=== PATIENT | female | born 1945 | race Two or more races ===

== ENCOUNTER 2019-06-13 14:02 | Emergency (ER) | payer MEDICARE, OTHER ==
[~2019-06-13] VITALS: Ht 160 cm; Wt 56.7 kg
[~2019-06-13 14:02] MED LIST: BACITUD TOP; CEPH-443 PO; HYDR-4011 PO; NAPR-985 PO
[2019-06-13 14:10] VITALS: BP 159/70; PULSE 63; RESP 18; Ht 160 cm; Wt 56.7 kg
[2019-06-13] MEDS ORDERED: HYDROCODONE/APAP (5/325) TAB PO STA (15:15)
[2019-06-13] MEDS ORDERED: DIPHTH/TET/ACEL PERTUSS (ADULT) 0.5 ML VIAL IM* ONE (15:30)
[2019-06-13] MEDS ORDERED: BACITRACIN 0.5%/ZINC 28.35 GM OINT TOP ONE (15:30)
[2019-06-13] MEDS ORDERED: TETANUS IMMUNE GLOB 250 UNIT SYG IM ONE (15:30)
[2019-06-13] MEDS ORDERED: LIDOCAINE 1% (MDV) 20 ML INJ SC ONE (16:00)
== END 2019-06-13 16:55 | disposition home or self-care (01) ==
LOC: FTE 14:02
DX: S61.211A Laceration without foreign body of left index finger without damage to nail, initial encounter (principal); W29.0XXA Contact with powered kitchen appliance, initial encounter; Y92.9 Unspecified place or not applicable
CPT/HCPCS: 73140; 90389; 90715

== ENCOUNTER 2019-06-15 06:22 | Emergency (ER) | payer MEDICARE, OTHER ==
[~2019-06-15] VITALS: Ht 160 cm; Wt 75.0 kg
[2019-06-15 06:25] VITALS: BP 131/68; PULSE 68; RESP 18; Ht 160 cm; Wt 75.0 kg
== END 2019-06-15 07:15 | disposition home or self-care (01) ==
LOC: FTE 06:22
DX: Z48.01 Encounter for change or removal of surgical wound dressing (principal)
CPT/HCPCS: 99283